=== PATIENT | female | born 1945 | race Caucasian/White ===

== ENCOUNTER → 2016-10-02 | Outpatient (CLI) | payer MEDICARE, MEDICAID ==
[~2016-10-02] MED LIST: BUSPIRONE HCL15 MG PO; CPAP INH; DEXILANT60 MG PO; LIORESAL10 MG; LYRICA 150MG C150 MG PO; PRISTIQ ER100 MG PO; REQUIP1 MG PO; RISPERDAL0.5 MG PO; WELCHOL 625MG625 MG PO; XANAX0.5 MG PO; ZYRTEC10 M3 PO
== END ==
LOC: GPOC 10-01 13:00
PROC: BR1DYZZ Fluoroscopy of Sacroiliac Joints using Other Contrast (ICD-10-PCS; principal; 2016-10-02)
DX: M53.3 Sacrococcygeal disorders, not elsewhere classified (principal)
CPT/HCPCS: J3301